=== PATIENT | female | born 2000 | race Caucasian/White ===

== ENCOUNTER → 2023-11-22 10:33 | Outpatient (BNVA) | payer MEDICAID, SELFPAY | PROVIDERS: Visit Provider Nurse Practitioner Women's Health | DX: Z36.87 Encounter for antenatal screening for uncertain dates (principal) | CPT/HCPCS: 76805; 80307; 81025; 82105; 85025; 86592; 86762; 86803; 86850; 86900; 87086; 87340; 87806 ==

== ENCOUNTER → 2023-12-05 08:25 | Outpatient (BNVA) | payer MEDICAID, SELFPAY | PROVIDERS: Visit Provider Nurse Practitioner Women's Health | DX: Z34.90 Encounter for supervision of normal pregnancy, unspecified, unspecified trimester (principal) | CPT/HCPCS: 84315; 87491; 87591 ==

== ENCOUNTER → 2023-12-20 09:30 | Outpatient (BNVA) | payer MEDICAID, SELFPAY | PROVIDERS: Visit Provider Obstetrics & Gynecology | DX: Z34.90 Encounter for supervision of normal pregnancy, unspecified, unspecified trimester (principal) | CPT/HCPCS: 76816 ==

== ENCOUNTER → 2024-01-03 08:01 | Outpatient (BNVA) | payer MEDICAID, SELFPAY | PROVIDERS: Visit Provider Nurse Practitioner Women's Health | DX: Z34.02 Encounter for supervision of normal first pregnancy, second trimester (principal) | CPT/HCPCS: 82950; 84315 ==

== ENCOUNTER → 2024-02-01 13:30 | Outpatient (BNVA) | payer MEDICAID, SELFPAY | PROVIDERS: Visit Provider Obstetrics & Gynecology | DX: Z34.02 Encounter for supervision of normal first pregnancy, second trimester (principal) | CPT/HCPCS: 84315; 85025 ==

== ENCOUNTER → 2024-03-15 10:39 | Outpatient (BNVA) | payer MEDICAID, SELFPAY | PROVIDERS: Visit Provider Nurse Practitioner Women's Health | DX: O99.013 Anemia complicating pregnancy, third trimester (principal) | CPT/HCPCS: 84315; 85025 ==

== ENCOUNTER → 2024-03-20 10:12 | Outpatient (BNVA) | payer MEDICAID, SELFPAY | PROVIDERS: Visit Provider Obstetrics & Gynecology | DX: Z36.4 Encounter for antenatal screening for fetal growth retardation (principal); D64.9 Anemia, unspecified; Z3A.35 35 weeks gestation of pregnancy | CPT/HCPCS: 76816 ==

== ENCOUNTER → 2024-04-01 08:22 | Outpatient (BNVA) | payer MEDICAID, SELFPAY | PROVIDERS: Visit Provider Obstetrics & Gynecology | DX: Z34.02 Encounter for supervision of normal first pregnancy, second trimester (principal); Z34.90 Encounter for supervision of normal pregnancy, unspecified, unspecified trimester | CPT/HCPCS: 84315; 87081 ==

== ENCOUNTER 2024-04-10 21:02 | Outpatient (CLI) | payer BC, MEDICAID, SELFPAY ==
[2024-04-10] VITALS (8 sets, daily range): BP systolic 116–147; BP diastolic 81–102; PULSE 69–88; RESP 17; BMI 21.7
== END 2024-04-10 23:20 | disposition home or self-care (01) ==
LOC: OPOB 21:07 → OBGYN 21:08
PROVIDERS: Visit Provider Obstetrics & Gynecology
DX: O26.899 Other specified pregnancy related conditions, unspecified trimester (principal); Z3A.00 Weeks of gestation of pregnancy not specified; R10.9 Unspecified abdominal pain
CPT/HCPCS: 59025; 99211

== ENCOUNTER 2024-04-24 00:49 | Inpatient (IN) | payer BC, MEDICAID, SELFPAY ==
[2024-04-23] VITALS (11 sets, daily range): BP systolic 124–156; BP diastolic 84–109; PULSE 71–111; RESP 16; TEMP 36.6; O2SAT 92–100; BMI 21.6
[2024-04-23 18:15] LABS: Basophils % 0.3 %; Eosinophils # 0.1 10^3/uL (0.0-0.8); Eosinophils % 0.4 %; Hematocrit 32.1 % (36-47); Lymphocytes # 2.2 10^3/uL (0.8-4.8); Lymphocytes % 17.4 %; Mean Corpuscular HGB Conc 33.3 g/dL (30-55); Mean Corpuscular Hemoglobin 29.5 pg (27-33); Mean Corpuscular Volume 88.4 fl (85-98); Mean Platelet Volume 11.7 fL (7.4-10.4); Monocytes # 0.7 10^3/uL (0.2-0.9); Monocytes % 5.1 %; Neutrophils # 9.77 10^3/uL (1.8-7.7); Neutrophils % 76.3 %; Nucleated Red Blood Cells % 0 %; Platelet Count 266 10^3/cmm (157-399); Red Blood Count 3.63 10^6/uL (3.85-5.65); Red Cell Distribution Width 12.8 % (12.1-15.1); White Blood Count 12.82 10^3/uL (3.29-11.43)
[2024-04-23] MEDS: miSOPROStol 100 mcg tablet 25 MCG VAGINAL ×2 (18:15→23:20)
[2024-04-23] MEDS: lactated ringers 1,000 ML 999 ML IV (23:45)
[2024-04-24] VITALS (139 sets, daily range): BP systolic 77–187; BP diastolic 40–142; PULSE 60–141; TEMP 36.6–38.1; O2SAT 69–100
--- NOTE | 2024-04-24 01:00 | PM.OBGYHP ---
Providers/Chief Complaint Admitting Physician: Jarvis Kulkarni MD Primary DEVELOPMENTAL BEHAVIORAL PHYSICIAN: Von Santiago MD Primary Care Provider: Von Santiago MD Chief Complaint: Induction of labor HPI DEVELOPMENTAL BEHAVIORAL PHYSICIAN History of Present Illness patient was seen and admitted on April 23, 2024, 1910 24 y.o. G1 EDC April 23, 2024 at 40 w 0 d no complications admitted for labor induction no c/o + active movements Present Details : 1 Para: 0 Labs Rubella: Immune RPR: Negative GBS: Negative Medications/Allergies Home Medications Medication Instructions Recorded Confirmed Last Taken Type vit 168-iron 27 mg-folic 1 cap PO DAILY 11/22/23 04/22/24 Unknown History acid 800 mcg-omega3 235 mg capsule (One-A-Day -1) ferrous sulfate 325 mg (65 mg 325 mg PO BID Anemia 30 days #60 02/15/24 04/22/24 Unknown Rx iron) tablet tabs Allergies Allergy/AdvReac Type Severity Reaction Status Date / Time No Known Allergies Allergy Verified 04/22/24 10:22 PFSH DEVELOPMENTAL BEHAVIORAL PHYSICIAN PFSH: Medical History No pertinent past medical history neghx: htn,dm,thyroid,dvt/pe PCP: None Surgical History No pertinent past surgical history Family History Denies family history of Colon cancer Ovarian cancer Prostate cancer Diabetes Heart disease Hyperlipidemia Breast cancer Hypertension Uterine cancer Thyroid disease Stroke Social History Smoking and tobacco/nicotine status: never used tobacco/nicotine History History History 1 Term 0 Miscarriages/Ectopic Living Children Care 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 General comfortable, awake, alert VS normal Lungs: clear Cor: RRR Abd: nontender Cx: closed / 0% / -4 / posterior Ext: no edema External monitor: heart tracing good variability, + accelerations Data 04/23/24 17:30 Results Labs OB ([facility]): Obstetrics US 03/20/24 Blood Type O Positive 04/23/24 Antibody Screen Negative 04/23/24 Hct 32.1 % (36-47) L 04/23/24 Hgb 10.70 g/dL (11.27-16.99) L 04/23/24 Rho(D) Type Rh positive 04/23/24 Plt Count 266 10^3/cmm (157-399) 04/23/24 Hep Bs Antigen Non-reactive (Nonreactive) 11/22/23 Hepatitis C Antibody Non-reactive (Nonreactive) 11/22/23 Rubella IgG Antibody 37.1 IU/mL (0.0-10.0) H 11/22/23 RPR Nonreactive (Nonreactive) 11/22/23 HIV 1&2 Ab & HIV 1 Ag Non-reactive (Non-Reactiv) 11/22/23 C.trachomatis RNA (TMA) Not detected (NOT DETECTED) 12/05/23 N.gonorrhoeae RNA (TMA) Not detected (NOT DETECTED) 12/05/23 T. vaginalis Amp RNA Not detected (NOT DETECTED) 12/05/23 Chlamydia/GC Comment See note 12/05/23 Cystic Fibrosis Screen Negative 11/22/23 Glucose 1 Hr 50 gm 129 mg/dL (85-140) 01/03/24 HCG, Qual Positive (Negative) H 11/22/23 Urine Opiates Screen Negative ng/mL (Negative) 11/22/23 Ur Barbiturates Screen Negative ng/mL (Negative) 11/22/23 Ur Phencyclidine Scrn Negative ng/mL (Negative) 11/22/23 Ur Amphetamines Screen Negative ng/mL (Negative) 11/22/23 U Benzodiazepines Scrn Negative ng/mL (Negative) 11/22/23 Urine Cocaine Screen Negative ng/mL (Negative) 11/22/23 U Marijuana (THC) Screen Negative ng/mL (Negative) 11/22/23 Micro Urine Specimen 11/22/23 A&P Assessment and plan (1) Encounter for induction of labor: 40 w 0 d admitted for induction of labor discussed with patient that induction can be prolonged, especially with an unfavorable cervix also discussed risks of labor induction, including uterine hyperstimulation, distress, increased rate option of waiting for gestation closer to 41 weeks offered to patient patient still wants labor induction fetus reassuring plan Cytotec 25 ug intravaginal Attestations Medical Necessity Statement*: patient at 40 w 0 d, admitted for induction of labor Coding Level of Care Code Acute Code for Chg Fwd Diagnoses Encounter for induction of labor Z34.90 Time Spent (min) 40
[2024-04-24] MEDS: lactated ringers 1,000 ML 999 ML IV ×4 (03:40→21:05)
[2024-04-24] MEDS: ondansetron 2 mg/ML SDV 2 mL 4 MG IVP ×2 (07:35→20:57)
[2024-04-24] MEDS: ROPivacaine syringe 100 MG/50 ML SYRINGE 10 MG EPIDURAL ×4 (08:50→20:33)
--- NOTE | 2024-04-24 09:00 | P.ANESASSM_ITS ---
Pre-Anesthetic Assessment Height/Weight: Height 5 ft 5 in Weight 130 lb Temp Pulse Resp BP Pulse Ox O2 Del Method 97.9 F 75 16 125/78 100 Room Air 04/23/24 17:40 04/24/24 09:31 04/23/24 17:40 04/24/24 09:31 04/24/24 09:27 04/23/24 17:43 Preop Diagnosis: In active labor Was Beta Russ taken within 24 hours: N/A Was Clonidine taken within 24 hours: N/A Social No alcohol and No tobacco Exam alert, oriented x 3, clear to auscultation bilaterally and regular rate & rhythm Airway Submandibular: within normal limits Cervical ROM: within normal limits Mallampati: Class II Dentition: full Anesthetic Plan ASA status: 2 Anesthesia: Regional (specify below) Other: here for active labor, requesting epidural placement Patient states that 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 No issues during , denies any cardiac or pulmonary issues Labs reviewed, platelets 266 Plan for epidural placement Medications/Allergies Home Medications Medication Instructions Recorded Confirmed Last Taken Type vit 168-iron 27 mg-folic 1 cap PO DAILY 11/22/23 04/22/24 Unknown History acid 800 mcg-omega3 235 mg capsule (One-A-Day -1) ferrous sulfate 325 mg (65 mg 325 mg PO BID Anemia 30 days #60 02/15/24 04/22/24 Unknown Rx iron) tablet tabs Allergies Allergy/AdvReac Type Severity Reaction Status Date / Time No Known Allergies Allergy Verified 04/22/24 10:22 Current Medications Generic Name Dose Route Start Last Admin Trade Name Deann PRN Reason Stop Dose Admin Lactated Ringer's 1,000 mls @ 999 mls/hr 04/23/24 17:41 04/24/24 04:12 Lactated Ringers IV 0 mls/hr .Q1H1M PRN Infusion Per L&D Rescitation Protocol Lactated Ringer's 1,000 mls @ 999 mls/hr 04/24/24 08:41 04/24/24 08:50 Lactated Ringers IV 999 mls/hr .Q1H1M PRN Administration See label comments Ropivacaine 100 mg in 50 mls @ 10 mls/hr 04/24/24 08:45 04/24/24 08:50 Naropin Syringe EPIDURAL 10 mls/hr .Q5H LUCI Administration Ondansetron HCl 4 mg 04/23/24 17:40 04/24/24 07:35 Ondansetron 2 Mg/Ml Sdv 2 Ml IVP 4 mg Q4H PRN Administration NAUSEA AND VOMITING PFSH Anesthesia Medical History No pertinent past medical history neghx: htn,dm,thyroid,dvt/pe PCP: None Surgical History No pertinent past surgical history Family History Denies family history of Colon cancer Ovarian cancer Prostate cancer Diabetes Heart disease Hyperlipidemia Breast cancer Hypertension Uterine cancer Thyroid disease Stroke Social History Smoking and tobacco/nicotine status: never used tobacco/nicotine Female Reproductive History : 1 Data Anesthesia 04/23/24 17:30 Short CBC 04/23/24 Range/Units 17:30 WBC 12.82 H (3.29-11.43) 10^3/uL Hgb 10.70 L (11.27-16.99) g/dL Hct 32.1 L (36-47) % MCV 88.4 (85-98) fl Plt Count 266 (157-399) 10^3/cmm Neut % (Auto) 76.3 % Neut # (Auto) 9.77 H (1.8-7.7) 10^3/uL Blood Bank 04/23/24 17:30 Blood Type O Positive Rho(D) Type Rh positive Antibody Screen Negative Cardiac Studies: 2 No Data to Display
--- NOTE | 2024-04-24 09:07 | ANES.PROC ---
Anesthesia Procedures Procedure/Date: 04/24/24 Epidural: Time Out Performed: Yes Consents Signed: Procedure Consent and NPO Consent Consent: requested by attending/covering physician and from patient Lumbar Level: L3-L4 Epidural position: sitting Epidural procedure: sterile prep of area, 1% lidocaine to numb the area, 18 g needle, negative for paresthesia passed, neg for paresthesia, test dose given, 1.5% xylocaine 1:200k epi, 0.2% Ropivacaine bolus ml (5), placed PCEA, no systemic response, sterile dressing applied and 0.2% Ropiavacaine @ mls/hr (10mls/hr)
[2024-04-24] MEDS: dextrose 5%-lactated ringers 1,000 ML 125 ML IV ×2 (11:12→13:37)
[2024-04-24] MEDS: oxytocin 30 UNIT/500 ML BAG IV (15:45)
--- NOTE | 2024-04-24 20:50 | PM.DELIVERY ---
Delivery Note: Date of delivery: April 24, 2024 Pre-delivery diagnoses: 40 w 0 d induction of labor Post-delivery diagnoses: 40 w 0 d induction of labor vaginal delivery repair of fourth-degree perineal laceration Procedure: vaginal delivery repair of fourth-degree perineal laceration Op report anesthesia: Epidural Delivering Physician: Jarvis Kulkarni MD Estimated blood loss (mL): 300 Findings: , vigorous male nuchal cord x two reduced cord gases and blood obtained normal placenta two-vessel cord no episiotomy fourth-degree perineal laceration repaired EBL: 300 cc no complications Pre-Delivery Course: normal labor course heart tracing had episodes of variable decelerations but they were not repetitive or prolonged heart tracing continued to have good variability Delivery: vaginal Post-Delivery Status: good History History History 1 Term 0 Miscarriages/Ectopic Living Children A&P Assessment and plan (1) Vaginal delivery: (2) Fourth degree perineal laceration: Coding Level of Care Code Acute Code for Chg Fwd Diagnoses Vaginal delivery O80 Fourth degree perineal laceration O70.3 Time Spent (min) 60
[2024-04-24] MEDS: HYDROcodone-acetaminophen 5-325 mg Tablet PO (23:27)
[2024-04-25] VITALS (7 sets, daily range): BP systolic 99–136; BP diastolic 61–87; PULSE 86–115; RESP 16–17; TEMP 36.4–37.6; O2SAT 97–99
[2024-04-25] MEDS: benzocaine-menthol 78 gm Canister 1 SPRAY TOPICAL (00:44)
[2024-04-25 01:30] LABS: Hematocrit 23.1 % (36-47); Mean Corpuscular HGB Conc 32.9 g/dL (30-55); Mean Corpuscular Hemoglobin 30.4 pg (27-33); Mean Corpuscular Volume 92.4 fl (85-98); Mean Platelet Volume 11.6 fL (7.4-10.4); Platelet Count 240 10^3/cmm (157-399); White Blood Count 28.58 10^3/uL (3.29-11.43)
--- NOTE | 2024-04-25 08:00 | ANE.PACU2 ---
Inpatient post-anesthesia follow up: Airway intact: Yes Vital signs: Temperature 98.3 F Pulse Rate 90 Respiratory Rate 17 Blood Pressure 113/84 Pulse Oximetry 98 Oxygen Delivery Me thod Room Air Oxygen Flow Rate Fraction of Inspir ed Oxygen Hydration adequate: Yes Nausea and vomiting: No Pain level: 1 Mental status: Baseline Epidural Start/End: Epidural Start Date: 04/24/24 Epidural Start Time: 08:57 Epidural End Date: 04/24/24 Epidural End Time: 20:50
[2024-04-25] MEDS: docusate sodium 100 mg Capsule PO ×2 (08:09→20:29)
[2024-04-25] MEDS: ibuprofen 800 mg tablet PO ×3 (08:09→20:29)
[2024-04-25] MEDS: PRENATAL VIT NO.130/IRON/FOLIC 1 EACH TABLET PO (08:09)
[2024-04-25 10:27] LABS: Mean Corpuscular HGB Conc 32.3 g/dL (30-55); Mean Corpuscular Hemoglobin 29.9 pg (27-33); Mean Corpuscular Volume 92.4 fl (85-98); Mean Platelet Volume 11.5 fL (7.4-10.4); Platelet Count 188 10^3/cmm (157-399); Red Blood Count 2.11 10^6/uL (3.85-5.65); White Blood Count 24.12 10^3/uL (3.29-11.43)
[2024-04-25 11:26] LABS: Hematocrit 19.5 % (36-47)
[2024-04-25] MEDS: ferrous sulfate EC 325 mg Tablet PO ×2 (12:00→20:29)
--- NOTE | 2024-04-25 14:05 | PM.OBGYPN ---
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: Interval history: no c/o no headaches, dizziness, nausea, abdominal pain, bleeding normal lochia mild perineal pain, relieved with pain meds eating, voiding, ambulating well Labor: Station: +1 Amniotic Membrane Status: Ruptured Monitor Mode: Internal (IUPC) Contraction Pattern: Regular Uterine Tone Measurement: 10 Vitals/I&O/Wt Last Vital Signs Temp 98.3 F 04/26/24 13:30 Pulse 90 04/26/24 13:30 Resp 17 04/26/24 13:30 BP 113/84 04/26/24 13:30 Pulse Ox 98 04/26/24 13:30 O2 Del Method Room Air 04/26/24 13:30 Physical Exam Narrative: afebrile, VS normal comfortable, awake, alert Abd: soft, nontender. fundus firm Ext: no edema; nontender Urinary Catheter Management: Esparza Latex: Cath Placed During This Visit: yes, but has since been removed by the nurse Reason for Continuing Indwelling Catheter: Decision to DC Catheter Urinary Catheter Date of Insertion: 04/24/24 Urinary Catheter Time of Insertion: 11:06 Date Urinary Catheter Removed: 04/24/24 Time Urinary Catheter Discontinued: 18:57 Data 04/25/24 10:03 A&P Assessment and plan (1) Vaginal delivery: PPD #1 with repair of fourth-degree perineal laceration doing well normal course continue care Attestations Medical Necessity Statement*: patient s/p vaginal delivery, for care Coding Level of Care Code Acute Code for Chg Fwd Diagnoses Vaginal delivery O80 Time Spent (min) 20
[2024-04-26 04:20] VITALS: BP 125/81; PULSE 94; RESP 16; O2SAT 100
[2024-04-26 09:00] VITALS: BP 113/83; PULSE 102; RESP 17; TEMP 36.8
[2024-04-26] MEDS: docusate sodium 100 mg Capsule PO (09:00)
[2024-04-26] MEDS: ferrous sulfate EC 325 mg Tablet PO (09:00)
[2024-04-26] MEDS: ibuprofen 800 mg tablet PO (09:00)
[2024-04-26] MEDS: PRENATAL VIT NO.130/IRON/FOLIC 1 EACH TABLET PO (09:01)
--- NOTE | 2024-04-26 12:15 | PM.OBGYPN ---
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 fundus firm Ext: no edema; nontender Urinary Catheter Management: Esparza Latex: Cath Placed During This Visit: yes, but has since been removed by the nurse Reason for Continuing Indwelling Catheter: Decision to DC Catheter Urinary Catheter Date of Insertion: 04/24/24 Urinary Catheter Time of Insertion: 11:06 Date Urinary Catheter Removed: 04/24/24 Time Urinary Catheter Discontinued: 18:57 Data 04/25/24 10:03 A&P Assessment and plan (1) Vaginal delivery: PPD #2 with repair of fourth-degree perineal laceration doing well discharge to home today instructions and precautions given call/return if fever, chills, headache, blurry vision, nausea, vomiting, abdominal pain; vaginal bleeding or discharge; shortness of breath, chest pain, leg pains or swelling; inability to void, perineal pain or swelling; feelings of depression or mood changes; thoughts of suicide or harming others; inability to care for baby. f/u in 2 weeks or PRN Attestations Medical Necessity Statement*: patient s/p vaginal delivery, plan to discharge to home today Coding Level of Care Code Acute Code for Chg Fwd Diagnoses Vaginal delivery O80 Time Spent (min) 20
--- NOTE | 2024-04-26 13:25 | P.DS_ITS ---
Discharge Providers QUANTITY SURVEYOR Date of Admission: 04/24/24 19:11 Date of Discharge: 04/26/24 Attending Provider at Admission: Jarvis Kulkarni MD Attending Provider at Discharge: Jarvis Kulkarni MD Consults: none Primary QUANTITY SURVEYOR: Von Santiago MD Primary Care Provider: Von Santiago MD Diagnoses at Discharge Discharge Diagnosis (1) Vaginal delivery: Details from hospital stay: 24 y.o. G1 at 40 w 0 d no complications admitted for labor induction patient was given cytotec and pitocin fetus was reassuring throughout patient delivered vaginally with repair of fourth-degree perineal laceration She had an uneventful course and was discharged to home on the second day Status: Acute Reason for Visit Reason for Visit: Induction of labor Brief History: 24 y.o. G1 at 40 w 0 d no complications admitted for labor induction Hospital Course Hospital Course 24 y.o. G1 at 40 w 0 d no complications admitted for labor induction patient was given cytotec and pitocin fetus was reassuring throughout patient delivered vaginally with repair of fourth-degree perineal laceration She had an uneventful course and was discharged to home on the second day Information Peripartum Data: Delivery Method: Vaginal Laceration description: Perineal - 4th Degree Episiotomy description: None complications: none Physical Exam Narrative: afebrile, VS normal comfortable, awake, alert Abd: soft, nontender. fundus firm Ext: no edema; nontender Urinary Catheter Management: Esparza Latex: Cath Placed During This Visit: yes, but has since been removed by the nurse Reason for Continuing Indwelling Catheter: Decision to DC Catheter Urinary Catheter Date of Insertion: 04/24/24 Urinary Catheter Time of Insertion: 11:06 Date Urinary Catheter Removed: 04/24/24 Time Urinary Catheter Discontinued: 18:57 History History History 1 Term 0 Miscarriages/Ectopic Living Children Discharge Data Studies Completed and Pending Laboratory Results WBC 24.12 10^3/uL (3.29-11.43) H 04/25/24 10:03 RBC 2.11 10^6/uL (3.85-5.65) L 04/25/24 10:03 Hgb 6.30 g/dL (11.27-16.99) L* 04/25/24 10:03 Hct 19.5 % (36-47) L* 04/25/24 10:03 MCV 92.4 fl (85-98) 04/25/24 10:03 MCH 29.9 pg (27-33) 04/25/24 10:03 MCHC 32.3 g/dL (30-55) 04/25/24 10:03 RDW 13.0 % (12.1-15.1) 04/25/24 10:03 Plt Count 188 10^3/cmm (157-399) 04/25/24 10:03 MPV 11.5 fL (7.4-10.4) H 04/25/24 10:03 Neut % (Auto) 76.3 % 04/23/24 17:30 Lymph % (Auto) 17.4 % 04/23/24 17:30 [place] % (Auto) 5.1 % 04/23/24 17:30 Eos % (Auto) 0.4 % 04/23/24 17:30 Baso % (Auto) 0.3 % 04/23/24 17:30 Neut # (Auto) 9.77 10^3/uL (1.8-7.7) H 04/23/24 17:30 Lymph # (Auto) 2.2 10^3/uL (0.8-4.8) 04/23/24 17:30 [place] # (Auto) 0.7 10^3/uL (0.2-0.9) 04/23/24 17:30 Eos # (Auto) 0.1 10^3/uL (0.0-0.8) 04/23/24 17:30 Baso # (Auto) 0.0 10^3/uL (0.0-0.1) 04/23/24 17:30 Nucleated RBC % (auto) 0 % 04/23/24 17:30 Nucleated RBCs # 0.0 /100WBC 04/23/24 17:30 Blood Type O Positive 04/23/24 17:30 Rho(D) Type Rh positive 04/23/24 17:30 Antibody Screen Negative 04/23/24 17:30 Procedures Performed labor induction vaginal delivery repair of fourth-degree perineal laceration Vitals Last Vital Signs Temp 98.3 F 04/26/24 13:30 Pulse 90 04/26/24 13:30 Resp 17 04/26/24 13:30 BP 113/84 04/26/24 13:30 Pulse Ox 98 04/26/24 13:30 O2 Del Method Room Air 04/26/24 13:30 Results Labs OB ([facility] Obstetrics US 03/20/24 Blood Type O Positive 04/23/24 Antibody Screen Negative 04/23/24 Hct 19.5 % (36-47) L* 04/25/24 Hgb 6.10 g/dL (11.27-16.99) L* 04/29/24 Rho(D) Type Rh positive 04/23/24 Plt Count 188 10^3/cmm (157-399) 04/25/24 Hep Bs Antigen Non-reactive (Nonreactive) 11/22/23 Hepatitis C Antibody Non-reactive (Nonreactive) 11/22/23 Rubella IgG Antibody 37.1 IU/mL (0.0-10.0) H 11/22/23 RPR Nonreactive (Nonreactive) 11/22/23 HIV 1&2 Ab & HIV 1 Ag Non-reactive (Non-Reactiv) 11/22/23 C.trachomatis RNA (TMA) Not detected (NOT DETECTED) N.gonorrhoeae RNA (TMA) Not detected (NOT DETECTED) T. vaginalis Amp RNA Not detected (NOT DETECTED) 12/05/23 Chlamydia/GC Comment See note 12/05/23 Cystic Fibrosis Screen Negative 11/22/23 Glucose 1 Hr 50 gm 129 mg/dL (85-140) 01/03/24 HCG, Qual Positive (Negative) H 11/22/23 Urine Opiates Screen Negative ng/mL (Negative) 11/22/23 Ur Barbiturates Screen Negative ng/mL (Negative) 11/22/23 Ur Phencyclidine Scrn Negative ng/mL (Negative) 11/22/23 Ur Amphetamines Screen Negative ng/mL (Negative) 11/22/23 U Benzodiazepines Scrn Negative ng/mL (Negative) 11/22/23 Urine Cocaine Screen Negative ng/mL (Negative) 11/22/23 U Marijuana (THC) Screen Negative ng/mL (Negative) 11/22/23 Micro Urine Specimen 11/22/23 Discharge Plan Discharge Patient Disposition: Home Condition: Stable Prescriptions: Continued One-A-Day -1 27 mg iron- 800 mcg-235 mg capsule 1 cap PO DAILY ferrous sulfate 325 mg (65 mg iron) tablet 325 mg PO BID 30 Days Qty: 60 3RF Discharge Orders: Discharge Order (Routine); Ordered 04/26/24 Ordered By: Jarvis Kulkarni Referrals: Jarvis Kulkarni MD [Physician] - 04/29/24 1:30 pm (6 WEEK APPOINTMENT SCHEDULED 05/30/2024 @ 02:30) Discharge Diet: Usual diet Discharge Activity: Increase activity as tolerated Patient Instructions: Depression (DC), Opioid Safety (DC), Preeclampsia and Eclampsia After Delivery (GEN), Hemorrhage (DC), OB Discharge Report, OB Food/Drug Interaction Guide, Opioid Safety, OB Home Care, OB Vaginal Deliveries - [facility], Abnormal Bleeding Discharge Attestations QUANTITY SURVEYOR Time Spent in Discharge Care*: less than 30 min Coding Level of Care Code Acute Code for Chg Fwd Diagnoses Vaginal delivery O80 Time Spent (min) 20
[2024-04-26 13:30] VITALS: BP 113/84; BP 120/87; PULSE 90; RESP 17; TEMP 36.8; O2SAT 98
== END 2024-04-26 13:50 | disposition home or self-care (01) | DRG 768 ==
PROVIDERS: Admitting Provider Obstetrics & Gynecology; PCP Obstetrics & Gynecology; Visit Provider Obstetrics & Gynecology
DX: O70.3 Fourth degree perineal laceration during delivery (principal); Z37.0 Single live birth; Z3A.40 40 weeks gestation of pregnancy; O76 Abnormality in fetal heart rate and rhythm complicating labor and delivery; O69.81X0 Labor and delivery complicated by cord around neck, without compression, not applicable or unspecified
CPT/HCPCS: 36415; 51702; 59025; 59409; 85025; 85027; 86850; 86900; 96374; 96376; 99211; G0378; J2405; J2590; J2795; J7120; J7121

== ENCOUNTER → 2024-04-29 14:17 | Outpatient (BNVA) | payer BC, MEDICAID, SELFPAY | PROVIDERS: Visit Provider Obstetrics & Gynecology | DX: O99.013 Anemia complicating pregnancy, third trimester (principal) | CPT/HCPCS: 85018 ==